=== PATIENT | male | born 1950 | race Caucasian/White ===

== ENCOUNTER → 2017-12-23 | Outpatient (CLI) | payer OTHER ==
[~2017-12-23] MED LIST: CIPR-344 PO; CIPR-345 PO; FAMO20TA28 PO; GLUC1CAP PO; HYDR-385 PO; IBUP800T37 PO; LEVO-85 PO; MULT-820 PO; PHEN200T32 PO; SULF-197 PO; SULF-198 PO; TAMS0.4C70 PO
--- NOTE | 2017-12-24 09:22 | RADIOLOGY IMAGING REPORT ---
FACILITY: [facility] PATIENT NAME: MANPREET BURR : [id number] MR: [id number] V: [id number] EXAM DATE: ORDERING PHYSICIAN: MONY ZABALA TECHNOLOGIST: Leslie Victor EXAMINATION:TWO-DIMENSIONAL ECHOCARDIOGRAPH REASON:LIGHTHEADED 2D Measurements (normal values in centimeters) LV endLV endRV endVent.LV PostAorticLeftPercent DiastolicSystolicDiastolicSeptumWallRootAtriumShortening (3.5-5.7)(0.9-2.6)(0.6-1.1)(0.6-1.1)(2.0-3.7)(1.9-4.0)(25-35%) [id number]% STROKE VOLUME: 54ml ESTIMATED EJECTION FRACTION:64% PARASTERNAL LONG AXIS: Overall left ventricular systolic function appears to be normal. Right ventricle is mildly enlarged. Other chamber sizes are normal. The right ventricle appears to contract normally with a TAPSE of 2.7. Color examination of the valves reveals a trace of mitral insufficiency. Color examination of the aortic valve was unremarkable. No wall motion abnormalities are noted. Color examination of the tricuspid valve reveals some tricuspid insufficiency. PARASTERNAL SHORT AXIS: Overall left ventricular systolic function again appears to be normal. No wall motion abnormalities are noted. The aortic valve is trileaflet in configuration & appears to open normally. Color examination of the valves reveals a trace of pulmonic insufficiency & a mild amount of tricuspid insufficiency. The tricuspid regurgitation Vmax measured 2.48m/sec. APICAL FOUR AND TWO CHAMBER: Normal left ventricular ejection fraction. Normal chamber sizes. The aortic valve area & mitral valve area both measure within normal ranges at 5.2 & 3.4cm2 respectively. Left atrial & right atrial volumes measure within normal ranges at 22 & 19ml/m2. SUBCOSTAL VIEW: No pericardial effusion was noted. No atrioseptal or ventriculoseptal defects were appreciated. Doppler examination of the mitral valve in diastole does reveal a normal pattern. There is no reversal with Valsalva but there is decreased medial & lateral E prime velocities. The E prime ratio is lateral 8.6 & medial 12.3. OVERALL IMPRESSION: 1. Normal left ventricular ejection fraction of 64% with a Grade 2/4 decrease in diastolic function indicating moderate decrease in diastolic function. 2. Mild right ventricular enlargement with all the other chamber sizes being normal. The right ventricle appears to contract normally. 3. Trace to mild amount of mitral & tricuspid insufficiency & a trace of pulmonic insufficiency. Estimated right ventricular systolic pressure within normal ranges at 28mm Hg. 4. A trileaflet aortic valve with no abnormalities. Dictated by: Jesus Ward M.D. on 12/23/2017 at 19:20 Transcribed by: REGI on 12/24/2017 at 8:55 Approved by: Jesus Ward M.D. on 12/24/2017 at 9:20 [facility]
== END ==
LOC: US 00:51
PROVIDERS: ATTEND Internal Medicine
DX: I50.30 Unspecified diastolic (congestive) heart failure (principal); I51.7 Cardiomegaly; I34.0 Nonrheumatic mitral (valve) insufficiency; I07.1 Rheumatic tricuspid insufficiency; I37.1 Nonrheumatic pulmonary valve insufficiency
CPT/HCPCS: 93306

== ENCOUNTER → 2018-01-13 | Outpatient (CLI) | payer OTHER ==
[~2018-01-13] MED LIST changes: +LEVO50TA86 PO
--- NOTE | 2018-01-13 17:35 | EKG ---
FACILITY: [facility] PATIENT NAME: MANPREET BURR : [id number] MR: [id number] V: [id number] EXAM DATE: ORDERING PHYSICIAN: MONY ZABALA TECHNOLOGIST: DMITRI Test Reason : DIZZINESS Blood Pressure : / mmHG Vent. Rate : 053 BPM Atrial Rate : 053 BPM P-R Int : 180 ms QRS Dur : 086 ms QT Int : 428 ms P-R-T Axes : 050 057 063 degrees QTc Int : 401 ms Sinus bradycardia Otherwise normal ECG No previous ECGs available Referred By: SAGRARIO Confirmed By:
== END ==
LOC: RESP 15:58
PROVIDERS: ATTEND Internal Medicine
DX: Z02.9 Encounter for administrative examinations, unspecified (principal)

== ENCOUNTER 2018-04-25 00:21 | Day surgery (SDC) | payer OTHER, MEDICARE ==
[~2018-04-25] VITALS: Ht 180.3 cm; Wt 88.0 kg
[~2018-04-25 00:21] MED LIST changes: +CEPH500T7 PO
[2018-04-25] MEDS ORDERED: fentaNYL CITR 250 MCG/5 ML AMP ONE (07:57)
[2018-04-25] MEDS ORDERED: LIDOCAINE 2% IV 100 MG/5ML SYR ONE (07:58)
[2018-04-25] MEDS ORDERED: PROPOFOL EMUL(*) 10MG/ML 20 ML 20 ML ONE (08:02)
[2018-04-25 08:07] VITALS: BP 126/89
[2018-04-25] MEDS ORDERED: cefTRIAXone(*) 1 GM VIAL 1 GM in NS(*) 0.9% 100 ML ADDVANT BAG 100 ML IVPB ONE (08:30)
[2018-04-25] MEDS ORDERED: MIDAZOLAM 2 MG/2 ML VIAL IVP PRN (08:30)
[2018-04-25] MEDS ORDERED: GENTAMICIN(*) 80 MG/2 ML VIAL 160 MG in NS(*) 0.9% 100 ML BAG 100 ML IVPB ONE (08:30)
[2018-04-25] MEDS ORDERED: LIDOCAINE/SOD BICARB 8.4% SYR ID ONE (08:30)
[2018-04-25] MEDS ORDERED: FAMOTIDINE 20 MG TAB PO ONE (08:30)
[2018-04-25] MEDS ORDERED: NORMOSOL R SOLN(*) 1000 ML BAG 1,000 ML IV PRN (08:30)
[2018-04-25] MEDS ORDERED: HYDROCORTISONE 1% CR 28.35 GM TP ONE (10:26)
[2018-04-25] MEDS ORDERED: DEXAMETHASONE SOD 4 MG/ML VIAL ONE (11:00)
[2018-04-25] MEDS ORDERED: ONDANSETRON 4 MG/2 ML VIAL ONE (11:01)
[2018-04-25] MEDS ORDERED: SULF-198 PO (12:31)
[2018-04-25] MEDS ORDERED: IBUP800T37 PO (12:32)
[2018-04-25] MEDS ORDERED: ACET-3017 PO (12:33)
[2018-04-25] MEDS ORDERED: FAMO-67 PO (12:34)
[2018-04-25 12:55] VITALS: BP 119/68
[2018-04-25] MEDS ORDERED: CEPH500T7 PO (13:15)
[2018-04-25 13:23] VITALS: BP 129/77
[2018-04-25 13:24] VITALS: BP 123/73
--- NOTE | 2018-04-25 14:55 | RADIOLOGY IMAGING REPORT ---
[place] [facility] [place] NAME: Shashank Jiménez : 1950 MR: [id number] V: [id number] EXAM DATE: ORDERING PHYSICIAN: DAVID LEAL TECHNOLOGIST: Location: [facility] Patient: Shashank Jiménez : 1950 Visit/Account:[id number] Date of Sevice: 04/25/2018 Exam type: PROSTATE BIOPSY History: Prostate biopsy Comparison: None. Findings: Prostate biopsy was performed by Dr. Leal. Sonographic assistance was provided. Please see Dr. Kali gardner's report for complete details IMPRESSION: 1. As above Report Dictated By: Cielo Sahni MD at 04/25/2018 2:50 PM Report E-Signed By: Cielo Sahni MD at 04/25/2018 2:51 PM WSN:[id number]
--- NOTE | 2018-04-26 04:10 | OPERATIVE REPORT 1 ---
EVENT DATE: April 25, 2018 SURGEON: Janes Benitez MD ANESTHESIOLOGIST: Herrera Sherwood MD ANESTHESIA: General. PREOPERATIVE DIAGNOSIS 1. Elevated prostate specific antigen, etiology ?. 2. 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 3. Acute on chronic inflammation of the prostate. POSTOPERATIVE DIAGNOSIS 1. Elevated prostate specific antigen, etiology ?. 2. 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 3. Acute on chronic inflammation of the prostate. 4. Possible hypoechoic area of the left midapical area of the prostate. PROCEDURE 1. Prostate ultrasound 2. Transrectal biopsies of the prostate x12 3. Cystourethroscopy DESCRIPTION OF PROCEDURE Under general anesthetic, the patient was prepped and draped in the extended lithotomy position. The prostate ultrasound probe was introduced. The prostate was scanned. There were scattered calculi throughout the prostate. There were multiple cystic areas bilaterally. There was a relative hypoechoic area in the left mid apical area of the prostate. Biopsies were obtained from the base, mid, apical areas of the prostate bilaterally x two for a total of 12 biopsies. Free samples were obtained from the hypoechoic area in the left midapical area of the prostate. The prostate measured a total of approximately 112 g. It was noted to be very deep in its AP diameter. Biopsy samples would only reach approximately midway in the AP diameter. The samples were obtained. After obtaining the samples, the rectal probe was removed. Digital examination revealed bright red blood in the rectal ampulla. The patient was re-prepped and draped in the extended lithotomy position. The 17 panendoscope admitted through the urethra into the bladder. The urethra is normal. Prostate showed trilobar hyperplasia with obstruction, mostly by large lateral lobes with increased AP diameter. Bladder showed 4+ trabeculation. Trigone and ureteral orifices were normal. There was no blood in the bladder, and there was no blood in the prostatic urethra. Bladder filled under gravity. Flow was measured to a total of approximately 500 mL. On drainage of the bladder, there were no glomerulations. Digital examination again revealed a small amount of bright red bleeding in the rectal ampulla. It was elected to apply transrectal pressure to help minimize any problems with bleeding. At conclusion of the transrectal pressure, there was noted to be minimal blood in the rectal ampulla. Patient tolerated the procedure satisfactorily and returned to the recovery room in satisfactory condition. INDICATION FOR PROCEDURE This is a 68-year-old white male complaining of elevated prostate specific antigen. He is known to have problem with acute and chronic prostatitis. His PSAs fluctuate significantly as followed every three months over the past few years. Patient had previous ultrasound biopsies that showed acute and chronic inflammation. Patient has a large obstructing prostate requiring Flomax therapy to maintain his ability to urinate satisfactorily. Patient also has been instructed on intermittent catheterization. He is able to do that easily at this convenience if there is any trouble urinating. DISCHARGE INSTRUCTIONS Patient will be ready for discharge home when alert and functional, to force fluids, 2 L per days. Activities are as tolerated. He is advised on bed rest today and forcing of fluids. Plan followup this coming Wednesday as to results of his biopsy. Patient was given my cell phone number to contact me if he is having any problems. Patient will be on double antibiotic therapy for a few days, Bactrim and Keflex therapy. If patient is unable to void, he can relieve himself with intermittent self catheterization as he has done in the past. Patient is to continue his usual medications. Copy of instructions were given to the patient. TAMIA
== END 2018-04-25 12:55 | disposition home or self-care (01) ==
LOC: OR 00:21
DX: R97.20 Elevated prostate specific antigen [PSA] (principal); N40.0 Benign prostatic hyperplasia without lower urinary tract symptoms; N41.9 Inflammatory disease of prostate, unspecified
CPT/HCPCS: 55700; 76942; 88305; J1100; J1580; J2001; J2405; J2704; J3010; J7050; 88344